=== PATIENT | female | born 1960 | race Caucasian/White ===

== ENCOUNTER → 2021-02-06 02:05 | Outpatient (CLI) | payer OTHER, SELFPAY ==
[2021-02-08 12:59] LABS: SARS-CoV-2 RNA PCR Negative
== END ==
PROVIDERS: Visit Provider Surgery Plastic and Reconstructive Surgery
DX: Z01.812 Encounter for preprocedural laboratory examination (principal); Z20.822 Contact with and (suspected) exposure to COVID-19
CPT/HCPCS: C9803; U0003; U0005

== ENCOUNTER 2021-02-09 00:16 | Day surgery (SDC) | payer OTHER, SELFPAY ==
[2021-01-31 13:58] VITALS: BMI 27.4
--- NOTE | 2021-02-08 10:12 | P.PNAN_ITS ---
Anes - Initial Pre Proc Eval Procedure: Operation Date: 02/09/21 07:30 Proposed Procedures p Bilateral Breast Implant Exchange - Sean Ledezma MD Date/Time: 02/08/21 10:12 Surgeon: Sean Ledezma MD Pre Op Diagnosis: left breast implant rupture Patient Data Age: 60 Gender: F Height: 1.6 m Weight: 70.3 kg Allergies Allergy/AdvReac Type Severity Reaction Status Date / Time No Known Allergies Allergy Verified 02/09/21 06:53 Home Medications Medication Instructions Recorded Confirmed Type docusate sodium 100 mg capsule 100 mg PO DAILY #14 cap 01/18/21 02/09/21 Rx ondansetron HCl 4 mg tablet 4 mg PO Q8H #21 tablet 01/18/21 02/09/21 Rx hydrocodone 5 mg-acetaminophen 325 1 tablet PO Q6H PRN #15 tablet 02/09/21 Rx mg tablet Patient hx anesthesia problems: none Family hx anesthesia problems: none [facility] Surgical History Surgical History (Updated 02/08/21 @ 10:12 by Zurdo Pacheco DO) History of breast implant History of hysterectomy Social History Social History Smoking status: Never smoker Alcohol intake: current Drinks per week: 5 Substance use: never Substance use type: does not use Living arrangements: with family Spiritual care concerns: No Anes - Eval Final PreProcedure Day of Procedure 02/08/21 10:12 Patient weight: overweight Heart: regular rate and rhythm Lungs: clear to auscultation and normal air movement Airway: Mallampati scale class II Neurological: alert and oriented Last oral intake: >/= 8 hours ASA classification: II Emergent: no Anesthetic plan: proceed Anesthesia type and monitoring: general LMA and standard monitoring Informed Consent: The patient's anesthetic plan and its attendant risks and benefits were discussed with the patient/family/POA. Questions were solicited and answers provided to the satisfaction of the patient/family/POA.
[2021-02-09] VITALS (10 sets, daily range): BP systolic 126–158; BP diastolic 61–84; PULSE 57–98; RESP 13–20; TEMP 36.2–36.7; O2SAT 76–100
--- NOTE | 2021-02-09 06:33 | WPDHPUPDATE1 ---
History and Physical Update Update Date/Time: 02/09/21 06:33 History and Physical has been reviewed, including an updated exam of the patient. There are NO changes in the patient's condition. Risks, benefits, and alternatives have been discussed and questions answered. Patient agrees to proceed with procedure.
--- NOTE | 2021-02-09 06:36 | PM.PROC ---
Procedure Note - Detailed Date of procedure: 02/09/21 Pre-op diagnosis: left breast implant rupture Post-op diagnosis: same Procedure performed: Bilateral breast implant exchange Description of procedure: Preoperatively the risks, benefits, alternatives were discussed in extensive detail. I wanted her to be very realistic about the risks involved as well as expectations. I made sure answered all of her questions to her satisfaction. Consent obtained. She was marked in the preoperative holding area with her verification. Taken to the operating room placed supine on the operating room table. Anesthesia provided by anesthesiology. Prepped and draped in a standard sterile fashion. Tegaderm nipple Barnes were placed. 1% lidocaine and 0.25% Marcaine with epinephrine was used anesthetize as a field block. Fifteen blade used to excise previous IMF scar. Dissection was continued down until the implant was identified. I removed the majority of the implant capsule. Implants were removed. The left was rupture the right was intact. These were 300 cc saline implants. Estimated base 12.2 cm. I copiously irrigated with 3 L of saline solution on TUR tubing. I then copiously irrigated with triple antibiotic Betadine containing solution. Air was removed out of the implant which was prepped on the back table. This was introduced into the pocket filled to the fill volume as below. I closed using 2-0 Vicryl followed by 3-0 Monocryl in a running subcuticular 4-0 Monocryl. Finally tissue glue. Fluffs and a surgical bra were placed. Patient was awoke and taken to the PACU without difficulty. All instrument sponge counts were correct at the end the case. Anesthesia: GLMA Surgeon: Sean Ledemza MD Estimated blood loss (mL): 10 Drains: No Packing: No Pathology: yes (Bilateral breast implant capsules) Complications: No immediate complications Condition: stable Disposition: PACU Findings: Previous implants: 300 cc saline. Textured. Estimated base diameter 12.2 cm. New implants: Bilateral smooth 300 cc saline implants filled to 320 cc. Right - REF# [id number] Left - REF# [id number]
[2021-02-09] MEDS: LACTATED RINGERS 1,000 ML 30 ML IV CONT ×2 (06:55→08:38)
[2021-02-09] MEDS: ceFAZolin 2 GM/D5W 50 ML 2 GM/50 ML BAG IVPB (07:20)
[2021-02-09] MEDS: LIDO 1%/EPINEPHRINE 1:100,000 50 ML VIAL 30 ML INFILTRATE (07:51)
[2021-02-09] MEDS: BUPIVACAINE HCL 0.25% PF 30 ML VIAL INFILTRATE (07:51)
[2021-02-09] MEDS: oxyCODONE HCL (*CRX) 5 MG TAB IR PO (10:42)
== END 2021-02-09 11:30 | disposition home or self-care (01) ==
PROVIDERS: Visit Provider Surgery Plastic and Reconstructive Surgery
PROC: (CPT 19342; principal; 2021-02-09 07:30)
DX: T85.41XA Breakdown (mechanical) of breast prosthesis and implant, initial encounter (principal); Y83.8 Other surgical procedures as the cause of abnormal reaction of the patient, or of later complication, without mention of misadventure at the time of the procedure
CPT/HCPCS: 19371; 19325; 88304; A9270; J0690; J1100; J1200; J1580; J2250; J2405; J2704; J3010; J7030; J7120

== ENCOUNTER 2022-01-24 00:30 | Day surgery (SDC) | payer BC, SELFPAY ==
[2022-01-04 14:51] VITALS: BMI 26.5
[2022-01-24 07:48] VITALS: BP 126/66; PULSE 65; RESP 16; TEMP 36.2; O2SAT 100
[2022-01-24] MEDS: LACTATED RINGERS 1,000 ML 150 ML IV CONT (07:51)
--- NOTE | 2022-01-24 08:42 | P.PNAN_ITS ---
Anes - Initial Pre Proc Eval Procedure: Operation Date: 01/24/22 09:00 Proposed Procedures p Colonoscopy - Gautam Jade MD Date/Time: 01/24/22 08:42 Surgeon: Gautam Jade MD Pre Op Diagnosis: Rectal pain Patient Data Age: 61 Gender: F Height: 1.6 m Weight: 68.1 kg Last Vital Signs Temp 97.1 F L 01/24/22 07:48 Pulse 65 01/24/22 07:48 Resp 16 01/24/22 07:48 BP 126/66 01/24/22 07:48 Pulse Ox 100 01/24/22 07:48 Allergies Allergy/AdvReac Type Severity Reaction Status Date / Time No Known Allergies Allergy Verified 01/24/22 07:47 Home Medications Medication Instructions Recorded Confirmed Type No Home Medications 04/10/21 01/24/22 History Patient hx anesthesia problems: none Family hx anesthesia problems: none Results Review: All pre-operative results and documents have been reviewed as part of the pre-operative evaluation. REPLACED BY [facility] Surgical History Surgical History History of breast implant History of hysterectomy Social History Social History Smoking status: Never smoker Alcohol intake: current Drinks per week: 4 Substance use: never Substance use type: does not use Living arrangements: with family Spiritual care concerns: No Anes - Eval Final PreProcedure Day of Procedure 01/24/22 08:42 Patient weight: overweight Heart: regular rate and rhythm Lungs: clear to auscultation Airway: Mallampati scale class II Neurological: alert and oriented Last oral intake: >/= 8 hours ASA classification: II Emergent: no Anesthetic plan: proceed Anesthesia type and monitoring: general GIVS and standard monitoring Results Review: All pre-operative results and documents have been reviewed as pa rt of the pre-operative evaluation. Informed Consent: The patient's anesthetic plan and its attendant risks and benefits were discussed with the patient/family/POA. Questions were solicited and answers provided to the satisfaction of the patient/family/POA.
--- NOTE | 2022-01-24 08:44 | PM.HPGS ---
History of Present Illness History of Present Illness Consent: Risks, benefits, and alternatives have been discussed and questions answered. Patient agrees to proceed with procedure. Chief complaint: Rectal pain Narrative: Patsy Claudio is a 61 year old female here to have a colonoscopy, last one 13 years ago. Also had rectal discomfort but improved after using hydrocortisone ointment Review of Systems Constitutional: Constitutional: Denies headache(s) and Denies weakness Eyes: Eyes: Denies blurry vision ENT: Reports Normal hearing present, Denies headache(s) and Denies neck pain Cardiovascular: Cardiovascular: Denies chest pain and Denies dyspnea Respiratory: Respiratory: Denies dyspnea Gastrointestinal: Gastrointestinal: Reports no additional gastrointestinal complaints Genitourinary: Genitourinary: Denies dysuria Musculoskeletal: Musculoskeletal: Denies neck pain Integumentary/Breasts: Skin/Breast: Denies dry skin Neurologic: Reports Normal hearing present, Denies headache(s) and Denies weakness Psychiatric: Psychiatric: Denies anxiety Endocrine: Endocrine: Denies change in body appearance Hematologic/Lymphatic: Hematologic/Lymphatic: Denies easy bleeding Allergic/Immunologic: Allergic/Immunologic: Denies urticaria PMFSH Past Medical History Medical History (Updated 01/24/22 @ 08:45 by Gautam Jade MD) Colon cancer screening Rectal pain Surgical History Surgical History History of breast implant History of hysterectomy Social History Social History Smoking status: Never smoker Alcohol intake: current Drinks per week: 4 Substance use: never Substance use type: does not use Living arrangements: with family Spiritual care concerns: No Meds Home Medications and Allergies Home Medications Medication Instructions Recorded Confirmed Type No Home Medications 04/10/21 01/24/22 History Allergies Allergy/AdvReac Type Severity Reaction Status Date / Time No Known Allergies Allergy Verified 01/24/22 07:47 Vital Signs Vital Signs - 24 hr 01/24/22 07:48 Temperature 97.1 F L Pulse Rate 65 Respiratory Rate 16 Blood Pressure 126/66 Pulse Oximetry 100 Exam Const: General: comfortable and no acute distress HENMT: General nose exam: Normal nares present Eyes: General: appearance normal, both eyes and all related structures Neck: Neck: no JVD Resp: Auscultation: clear to auscultation bilaterally Cardio: Rate: regular rate Rhythm: regular rhythm GI: Inspection: non-distended GI Palp: Yes Soft to palpation Skin: General skin exam: normal color Neuro: General: gait normal Speech: normal speech Extrem: General: normal to inspection Psych: Mental Status: mental status grossly normal Assessment and Plan Assessment and plan (1) Rectal pain: Code(s): K62.89 - Other specified diseases of anus and rectum Status: Acute Assessment and Plan: probably perianal source, will do colonoscopy (2) Colon cancer screening: Code(s): Z12.11 - Encounter for screening for malignant neoplasm of colon Status: Acute
[2022-01-24 09:14] VITALS: BP 115/66; PULSE 63; RESP 16; O2SAT 100
[2022-01-24 09:24] VITALS: BP 117/68; PULSE 59; RESP 16; O2SAT 100
[2022-01-24 09:34] VITALS: BP 106/68; PULSE 59; RESP 16; O2SAT 100
== END 2022-01-24 09:46 | disposition home or self-care (01) ==
PROVIDERS: PCP Physician Assistant Medical; Visit Provider Internal Medicine Gastroenterology
PROC: 0DJD8ZZ Inspection of Lower Intestinal Tract, Via Natural or Artificial Opening Endoscopic (ICD-10-PCS; CPT 45378; principal; 2022-01-24 09:00)
DX: Z12.11 Encounter for screening for malignant neoplasm of colon (principal); K62.89 Other specified diseases of anus and rectum; K63.5 Polyp of colon; K57.30 Diverticulosis of large intestine without perforation or abscess without bleeding; K64.8 Other hemorrhoids
CPT/HCPCS: 45385; 88305; J2704; J7120

== ENCOUNTER 2023-04-22 00:40 | Day surgery (SDC) | payer BC, SELFPAY ==
[2023-04-11 10:49] VITALS: BMI 27.5
[2023-04-22 07:50] VITALS: BP 112/60; PULSE 57; RESP 18; TEMP 36.3; O2SAT 100; BMI 26.9
[2023-04-22] MEDS: LACTATED RINGERS 1,000 ML 150 ML IV CONT (08:00)
--- NOTE | 2023-04-22 08:28 | P.PNAN_ITS ---
Anes - Initial Pre Proc Eval Procedure: Operation Date: 04/22/23 09:00 Proposed Procedures p Esophagogastroduodenoscopy & Colonoscopy - Gautam Jade MD [facility] Hemorrhoid Treatment - Gautam Jade MD Date/Time: 04/22/23 08:28 Surgeon: Gautam Jade MD Pre Op Diagnosis: Epigastric pain, hemorrhoids, Patient Data Age: 62 Gender: F Height: 1.6 m Weight: 68.8 kg Last Vital Signs Temp 36.3 C L 04/22/23 07:50 Pulse 57 L 04/22/23 07:50 Resp 18 04/22/23 07:50 BP 112/60 04/22/23 07:50 Pulse Ox 100 04/22/23 07:50 O2 Del Method Room Air 04/22/23 07:50 Allergies Allergy/AdvReac Type Severity Reaction Status Date / Time No Known Allergies Allergy Verified 04/22/23 07:48 Home Medications Medication Instructions Recorded Confirmed Type No Home Medications 04/11/23 04/11/23 History Patient hx anesthesia problems: none Family hx anesthesia problems: none Results Review: All pre-operative results and documents have been reviewed as part of the pre- operative evaluation. [facility] Past Medical History Medical History Adenomatous colon polyp Colon cancer screening Epigastric discomfort Hemorrhoid Postherpetic neuralgia Rectal pain Surgical History Surgical History History of breast implant History of hysterectomy Social History Social History Smoking status: Never smoker Alcohol intake: current Drinks per week: 4 Substance use: current Substance use type: does not use Living arrangements: with family Spiritual care concerns: No Anes - Eval Final PreProcedure Day of Procedure 04/22/23 08:28 Patient weight: overweight Heart: regular rate and rhythm Lungs: clear to auscultation Airway: Mallampati scale class II Neurological: alert and oriented Last oral intake: >/= 8 hours ASA classification: II Emergent: no Anesthetic plan: proceed Anesthesia type and monitoring: general GIVS and standard monitoring Results Review: All pre-operative results and documents have been reviewed as part of the pre- operative evaluation. Informed Consent: The patient's anesthetic plan and its attendant risks and benefits were discussed with the patient/family/POA. Questions were solicited and answers provided to the satisfaction of the patient/family/POA.
--- NOTE | 2023-04-22 08:58 | PM.HPGS ---
History of Present Illness History of Present Illness Consent: Risks, benefits, and alternatives have been discussed and questions answered. Patient agrees to proceed with procedure. Chief complaint: Epigastric pain, hemorrhoids, Narrative: Patsy Claudio is a 62 year old female with epigastric pain using omeprazole but never had egd, also had hemorrhoids but lately better, had low grade dysplasia polyp removed 2021. Review of Systems Constitutional: Constitutional: Denies headache(s) and Denies weakness Eyes: Eyes: Denies blurry vision ENT: Reports Normal hearing present, Denies headache(s) and Denies neck pain Cardiovascular: Cardiovascular: Denies chest pain and Denies dyspnea Respiratory: Respiratory: Denies dyspnea Gastrointestinal: Gastrointestinal: Reports no additional gastrointestinal complaints Genitourinary: Genitourinary: Denies dysuria Musculoskeletal: Musculoskeletal: Denies neck pain Integumentary/Breasts: Skin/Breast: Denies dry skin Neurologic: Reports Normal hearing present, Denies headache(s) and Denies weakness Psychiatric: Psychiatric: Denies anxiety Endocrine: Endocrine: Denies change in body appearance Hematologic/Lymphatic: Hematologic/Lymphatic: Denies easy bleeding Allergic/Immunologic: Allergic/Immunologic: Denies urticaria PMFSH Past Medical History Medical History Adenomatous colon polyp Colon cancer screening Epigastric discomfort Hemorrhoid Postherpetic neuralgia Rectal pain Surgical History Surgical History History of breast implant History of hysterectomy Social History Social History Smoking status: Never smoker Alcohol intake: current Drinks per week: 4 Substance use: current Substance use type: does not use Living arrangements: with family Spiritual care concerns: No Meds Home Medications and Allergies Home Medications Medication Instructions Recorded Confirmed Type No Home Medications 04/11/23 04/11/23 History Allergies Allergy/AdvReac Type Severity Reaction Status Date / Time No Known Allergies Allergy Verified 04/22/23 07:48 Vital Signs Vital Signs - 24 hr 04/22/23 07:50 Temperature 97.4 F L Pulse Rate 57 L Respiratory Rate 18 Blood Pressure 112/60 Pulse Oximetry 100 Oxygen Delivery Room Air Exam Const: General: comfortable and no acute distress HENMT: Face/Nose/Sinus: Normal nares present Eyes: General: appearance normal, both eyes and all related structures Neck: Neck: no JVD Resp: Auscultation: clear to auscultation bilaterally Cardio: Rate: regular rate Rhythm: regular rhythm GI: Inspection: non-distended GI Palp: Yes Soft to palpation Skin: General skin exam: normal color Neuro: General: gait normal Speech: normal speech Extrem: General: normal to inspection Psych: Mental Status: mental status grossly normal Assessment and Plan Assessment and plan (1) Epigastric discomfort: Code(s): R10.13 - Epigastric pain Status: Acute Assessment and Plan: egd with bx (2) Adenomatous colon polyp: Qualifiers: Colon location: unspecified part of colon Qualified Code(s): D12.6 - Benign neoplasm of colon, unspecified Code(s): D12.6 - Benign neoplasm of colon, unspecified Status: Acute Assessment and Plan: colonoscopy (3) Hemorrhoid: Qualifiers: Hemorrhoid type: unspecified Qualified Code(s): K64.9 - Unspecified hemorrhoids Code(s): K64.9 - Unspecified hemorrhoids Status: Acute Assessment and Plan: will assess if she needs IRC of internal hemorrhoids lately better
[2023-04-22] MEDS: BENZOCAINE (*SP) 60 ML SPRAY CAN (HURRICAINE) 1 SPRAY MUCOUS MEM (09:06)
--- NOTE | 2023-04-22 09:19 | SUR.OPER ---
EGD ENDED AT 911, COLON BEGAN AT 916.
[2023-04-22 09:35] VITALS: BP 99/54; PULSE 70; RESP 20; O2SAT 96
[2023-04-22 09:45] VITALS: BP 113/61; PULSE 78; RESP 20; O2SAT 99
[2023-04-22 09:55] VITALS: BP 123/59; PULSE 62; RESP 18; O2SAT 100
== END 2023-04-22 10:07 | disposition home or self-care (01) ==
PROVIDERS: PCP Nurse Practitioner Family; Visit Provider Internal Medicine Gastroenterology
PROC: 0DJ08ZZ Inspection of Upper Intestinal Tract, Via Natural or Artificial Opening Endoscopic (ICD-10-PCS; CPT 43235; principal; 2023-04-22 09:00)
DX: Z12.11 Encounter for screening for malignant neoplasm of colon (principal); D12.4 Benign neoplasm of descending colon; K57.30 Diverticulosis of large intestine without perforation or abscess without bleeding; K64.9 Unspecified hemorrhoids; K25.9 Gastric ulcer, unspecified as acute or chronic, without hemorrhage or perforation; K29.50 Unspecified chronic gastritis without bleeding; K29.70 Gastritis, unspecified, without bleeding; B96.81 Helicobacter pylori [H. pylori] as the cause of diseases classified elsewhere
CPT/HCPCS: 43239; 45385; 88305; 88342; J2704; J7120